=== PATIENT | female | born 1960 | race Caucasian/White ===

== ENCOUNTER 2021-12-04 09:49 | Outpatient (CLI) | payer BC | END 2021-12-04 09:50 | disposition home or self-care (01) | LOC: ULT 09:49 | PROVIDERS: ATTEND Physician Assistant | DX: M79.605 Pain in left leg (principal); I65.23 Occlusion and stenosis of bilateral carotid arteries | CPT/HCPCS: 93880 ==

== ENCOUNTER 2022-04-29 11:11 | Outpatient (CLI) | payer BC | END 2022-04-29 11:12 | disposition home or self-care (01) | LOC: BICRAD 11:11 | PROVIDERS: ATTEND Physician Assistant | DX: R06.02 Shortness of breath (principal) | CPT/HCPCS: 71046 ==

== ENCOUNTER 2023-06-23 16:27 | Outpatient (CLI) | payer BC | END 2023-06-23 16:28 | disposition home or self-care (01) | LOC: BICRAD 16:27 | PROVIDERS: ATTEND Physician Assistant | DX: R05.2 Subacute cough (principal) | CPT/HCPCS: 71046 ==

== ENCOUNTER 2023-08-29 10:06 | Outpatient (CLI) | payer BC | END 2023-08-29 10:07 | disposition home or self-care (01) | LOC: BICMAMMO 10:06 | PROVIDERS: ATTEND Physician Assistant | DX: Z12.31 Encounter for screening mammogram for malignant neoplasm of breast (principal); Z13.820 Encounter for screening for osteoporosis; M81.0 Age-related osteoporosis without current pathological fracture | CPT/HCPCS: 77063; 77067; 77080 ==

== ENCOUNTER 2024-04-10 09:58 | Outpatient (CLI) | payer BC | END 2024-04-10 09:59 | disposition home or self-care (01) | LOC: BICMAMMO 09:58 | PROVIDERS: ATTEND Physician Assistant | DX: N64.4 Mastodynia (principal) | CPT/HCPCS: 76642; 77066; G0279 ==

== ENCOUNTER 2024-10-22 10:55 | Outpatient (CLI) | payer BC | END 2024-10-22 10:56 | disposition home or self-care (01) | LOC: BICMAMMO 10:55 | PROVIDERS: ATTEND Physician Assistant | DX: Z13.820 Encounter for screening for osteoporosis (principal); M81.0 Age-related osteoporosis without current pathological fracture | CPT/HCPCS: 77080 ==

== ENCOUNTER 2025-06-06 14:42 | Outpatient (CLI) | payer MEDICARE | END 2025-06-06 14:43 | disposition home or self-care (01) | LOC: BICMAMMO 14:42 | PROVIDERS: ATTEND Physician Assistant | DX: Z12.31 Encounter for screening mammogram for malignant neoplasm of breast (principal) | CPT/HCPCS: 77063; 77067 ==